=== PATIENT | female | born 1985 | race Two or more races ===

== ENCOUNTER 2020-03-02 05:39 | Emergency (ER) | payer MEDICAID ==
[~2020-03-02] VITALS: Ht 160 cm; Wt 90.7 kg
[2020-03-02 05:40] VITALS: BP 110/78
--- NOTE | 2020-03-02 05:45 | NUR ---
Note swatione in EDM - 03/02/20 at 0607 by DUYEN ED Nurse Note: Patient walked into ED c/o abdominal pain onset for 5 hours nwo, states that "her whole abdomen hurts and it feels like im in labor" presents with nausea and reports of 1 episode of 1 vomit, reports of having episodes of gallstones however has not followed up with her PMD for said pain, patient is alert and oriented x4, ambulatory with a steady gait, VSS. IV line established in right AC 18 gauge. will wait for further orders
--- NOTE | 2020-03-02 05:54 | Emergency Room Report ---
History of Present Illness General Chief Complaint: Abdominal Pain Source: Patient (Narendra Guan MD) Present Illness HPI Disclaimer: Please note that this report is being documented using [employer] technology. This can lead to erroneous entry secondary to incorrect interpretation by the dictating instrument. HPI: 34-year-old female history of gallstones presents for evaluation of abdominal pain. Symptoms began approximately midnight. Patient reports significant diffuse abdominal pain mostly centered on the epigastrium though radiating both up and down. Reports a history of gallstones and was scheduled for cholecystectomy in November in [place] where she was living however this was canceled. States he has been having intermittent flareups but not as bad as today. She now lives in [place] taking care of her father. Has not established care with a primary care doctor or surgeon. Reports several episodes of emesis throughout the night. Denies diarrhea, dysuria, hematuria, fever, chills, shortness of breath. 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 EOMI. Cardiovascular: RRR. S1 and S2 normal. No murmur appreciated Resp: Normal work of breathing. No cough, wheezing or crackles appreciated Abdomen: Abdomen is soft, nondistended. Obese abdomen. Diffusely tender though particular tender in the epigastrium, left upper quadrant right upper quadrant with positive Stanley's point tenderness. Negative for rebound. Skin: Intact. No abrasions, laceration or rash over the exposed skin MSK: Normal tone and bulk. Moving all extremities. No obvious deformity. Neuro: Awake and alert. Mentating appropriately. (Narendra Guan MD) Medical Decision Making Diagnostic Impression: Primary Impression: Symptomatic cholelithiasis ER Course 34-year-old female history of gallstones presents for evaluation of abdominal pain. Differential includes but not limited to cholecystitis, biliary colic, pancreatitis, choledocholithiasis, cholangitis, GERD, perforated ulcer, mesenteric ischemia, pyelonephritis, nephrolithiasis to name a few. Patient placed on gurney, IV line established. She will receive IV fluids, antiemetics , analgesics. Will send broad labs and obtain ultrasound to evaluate for gallbladder disease. Patient will be signed out to Dr Duffy pending labs, imaging and ultimate disposition. (Narendra Guan MD) ER Course This patient was turned over to me by Dr. Guan. Please see his history and physical for those details. The patient was pending ultrasound of the right upper quadrant and laboratory work-up. Ultrasound of the right upper quadrant showed gallstones without evidence of cholecystitis, specifically, no gallbladder wall thickening or francis-cholecystic fluid. I reexamined the patient 's abdomen and her exam was benign. The patient had significant relief of her symptoms with IV pain medication and IV fluids. I did discuss the case with the on-call general surgeon Dr. Herrera. He stated that he would be happy to consult on this patient after she were admitted for pain control and IV fluids and he recommended a HIDA scan to further delineate whether she needed emergency surgery. This plan would require the patient to be admitted over the weekend for IV fluids, bowel rest and pain control and undergo this evaluation on Wednesday. After discussion with the patient, she stated that she would rather try to go home and then returned this weekend if her pain were to worsen and become severe again. She noted that unless she was guaranteed a cholecystectomy , she did not want to be in the hospital. Unfortunately, I do not have control over whether this patient undergoes a cholecystectomy so I cannot guarantee this to the patient. She declined admission stating that she will return for worsening symptoms. I offered the patient a narcotic prescription, but she declined stated that she did not want to get addicted to pain medications. She was given very close return precautions. Laboratory Tests Test 03/02/20 05:45 White Blood Count 13.6 K/UL (4.8-10.8) H Red Blood Count 4.73 M/UL (4.20-5.40) Hemoglobin 14.5 G/DL (12.0-16.0) Hematocrit 40.5 % (37.0-47.0) Mean Corpuscular Volume 86 FL (80-99) Mean Corpuscular Hemoglobin 30.7 PG (27.0-31.0) Mean Corpuscular Hemoglobin Concent 35.9 G/DL (32.0-36.0) Red Cell Distribution Width 11.8 % (11.6-14.8) Platelet Count 317 K/UL (150-450) Mean Platelet Volume 6.5 FL (6.5-10.1) Neutrophils (%) (Auto) 62.3 % (45.0-75.0) Lymphocytes (%) (Auto) 28.8 % (20.0-45.0) Monocytes (%) (Auto) 5.8 % (1.0-10.0) Eosinophils (%) (Auto) 2.1 % (0.0-3.0) Basophils (%) (Auto) 1.0 % (0.0-2.0) Urine Color Brown Urine Appearance Slightly cloudy Urine pH 5 (4.5-8.0) Urine Specific [place]lap 1.025 (1.005-1.035) Urine Protein 2+ (NEGATIVE) H Urine Glucose (UA) Negative (NEGATIVE) Urine Ketones 1+ (NEGATIVE) H Urine Blood 3+ (NEGATIVE) H Urine Nitrite Positive (NEGATIVE) H Urine Bilirubin 1+ (NEGATIVE) H Urine Ictotest Negative (NEGATIVE) Urine Urobilinogen 4 MG/DL (0.0-1.0) H Urine Leukocyte Esterase 2+ (NEGATIVE) H Urine RBC 5-10 /HPF (0 - 2) H Urine WBC 5-10 /HPF (0 - 2) H Urine Squamous Epithelial Cells Many /LPF (NONE/OCC) H Urine Bacteria Moderate /HPF (NONE) H Urine Mucus Moderate /LPF (NONE/OCC) H Urine HCG, Qualitative Negative (NEGATIVE) Sodium Level 138 MMOL/L (136-145) Potassium Level 3.8 MMOL/L (3.5-5.1) Chloride Level 104 MMOL/L (98-107) Carbon Dioxide Level 25 MMOL/L (21-32) Anion Gap 9 mmol/L (5-15) Blood Urea Nitrogen 11 mg/dL (7-18) Creatinine 0.9 MG/DL (0.55-1.30) Estimated Glomerular Filtration Rate > 60 mL/min (>60) Glucose Level 113 MG/DL (74-106) H Calcium Level 8.5 MG/DL (8.5-10.1) Total Bilirubin 0.2 MG/DL (0.2-1.0) Aspartate Amino Transferase (AST) 14 U/L (15-37) L Alanine Aminotransferase (ALT) 30 U/L (12-78) Alkaline Phosphatase 50 U/L (46-116) Troponin I 0.000 ng/mL (0.000-0.056) Total Protein 7.0 G/DL (6.4-8.2) Albumin 3.6 G/DL (3.4-5.0) Globulin 3.4 g/dL Albumin/Globulin Ratio 1.1 (1.0-2.7) Lipase 105 U/L (73-393) [facility] EKG Diagnostic Results EKG Time: 05:55 Rate: normal Rhythm: NSR ST Segments: no acute changes Other Impression Sinus rhythm, normal axis, normal intervals, no ST segment changes. (Narendra Guan MD) Rhythm Strip Diag. Results Rhythm Strip Time: 05:55 EP Interpretation: yes Rate: 60s Rhythm: NSR, no PVC's, no ectopy (Narendra Guan MD) CT/MRI/US Diagnostic Results CT/MRI/US Diagnostic Results : Imaging Test Ordered: US Abd Impression IMPRESSION: Cholelithiasis. No additional findings suspicious for acute cholecystitis. No intra-or extrahepatic biliary dilation suspicious for biliary obstruction identified. If this is of concern, abdominal MRI with MRCP could be considered in further evaluation. [facility] Last Vital Signs Date Time Temp Pulse Resp B/P (MAP) Pulse Ox O2 Delivery O2 Flow Rate FiO2 03/02/20 05:40 92 22 Room Air 03/02/20 05:40 98.8 110/78 99 (Narendra Guan MD) Status: improved [facility] Disposition: HOME, SELF-CARE Condition: Improved Narendra Guan MD Mar 02, 2020 05:54 Meagan Duffy DO Mar 02, 2020 08:37
--- NOTE | 2020-03-02 05:54 | NUR ---
ED Nurse Note: EKG done at bedside; NSR 64; reviewed by ahsan
[2020-03-02] MEDS ORDERED: Morphine Sulfate 4mg/ml Inj (IV USE ONLY) IVP ONE (06:00)
[2020-03-02 06:06] LABS: EOSINOPHILS % (AUTO) 2.1 % (0.0-3.0); HEMATOCRIT 40.5 % (37.0-47.0); HEMOGLOBIN 14.5 G/DL (12.0-16.0); LYMPHOCYTES % (AUTO) 28.8 % (20.0-45.0); MEAN CORPUSCULAR VOLUME 86 FL (80-99); MONOCYTES % (AUTO) 5.8 % (1.0-10.0); NEUTROPHILS % (AUTO) 62.3 % (45.0-75.0); PLATELET COUNT 317 K/UL (150-450); RED BLOOD COUNT 4.73 M/UL (4.20-5.40); RED CELL DISTRIBUTION WIDTH 11.8 % (11.6-14.8); WHITE BLOOD COUNT 13.6 K/UL (4.8-10.8)
[2020-03-02 06:07] LABS: APPEARANCE,URINE SLIGHTLY CLOUDY; BILIRUBIN, URINE 1+ (NEGATIVE); COLOR,URINE BROWN; GLUCOSE, URINE (UA) NEGATIVE (NEGATIVE); KETONES,URINE 1+ (NEGATIVE); LEUKOCYTE ESTERASE ,URINE 2+ (NEGATIVE); NITRITE,URINE POSITIVE (NEGATIVE); PH,URINE 5 (4.5-8.0); PROTEIN,URINE 2+ (NEGATIVE); UROBILINOGEN,URINE 4 MG/DL (0.0-1.0)
--- NOTE | 2020-03-02 06:07 | NUR ---
RUTHIE, PATIENT'S [phone]
[2020-03-02 06:22] LABS: ANION GAP 9 mmol/L (5-15); BLOOD UREA NITROGEN 11 mg/dL (7-18); CALCIUM 8.5 MG/DL (8.5-10.1); CARBON DIOXIDE 25 MMOL/L (21-32); CHLORIDE 104 MMOL/L (98-107); CREATININE 0.9 MG/DL (0.55-1.30); POTASSIUM 3.8 MMOL/L (3.5-5.1); SODIUM 138 MMOL/L (136-145)
[2020-03-02 06:27] LABS: ALANINE AMINOTRANSFERASE 30 U/L (12-78); ALBUMIN 3.6 G/DL (3.4-5.0); ALBUMIN/GLOBULIN RATIO 1.1 (1.0-2.7); ALKALINE PHOSPHATASE 50 U/L (46-116); ASPARTATE AMINO TRANSFERASE 14 U/L (15-37); BILIRUBIN,TOTAL 0.2 MG/DL (0.2-1.0)
--- NOTE | 2020-03-02 07:04 | NUR ---
HAND-OFF: Report given to BING Eden.
--- NOTE | 2020-03-02 07:19 | NUR ---
ED Nurse Note: received report from BING Chu for continuity of care. Pt on bed, awake and alert, NAD noted.
--- NOTE | 2020-03-02 08:06 | Diagnostic Imaging Report ---
EXAM: US Abdomen Complete CLINICAL HISTORY: ABD PAIN TECHNIQUE: Real-time ultrasound of the abdomen with image documentation. COMPARISON: No relevant prior studies available. FINDINGS: Liver: The liver is normal measuring 17.7 cm in length. Patent hepatic veins with normal directional flow. Gallbladder: The gallbladder shows multiple gallstones. No gallbladder wall thickening. Sonographic Stanley's sign was negative. Common bile duct: Normal common duct diameter at 3.7 mm. No intra- hepatic biliary dilation is apparent. No stones. Pancreas: Unremarkable as visualized. Kidneys: Left kidney measures 11.1 x 6.3 x 5.0 cm and is unremarkable. Right kidney measures 9.8 x 4.2 x 5.4 cm and is also unremarkable. No stones. No hydronephrosis. Spleen: Normal splenic size measuring 11 cm in length. Aorta: Normal abdominal aorta and IVC. No aneurysm. Inferior vena cava: See above. Other vasculature: Normal directional flow in the main portal vein. IMPRESSION: Cholelithiasis. No additional findings suspicious for acute cholecystitis. No intra-or extrahepatic biliary dilation suspicious for biliary obstruction identified. If this is of concern, abdominal MRI with MRCP could be considered in further evaluation.
[2020-03-02 08:56] VITALS: BP 115/80
--- NOTE | 2020-03-02 08:56 | NUR ---
ER DISCHARGE NOTE: Pt is cleared to be discharged per ERMD, pt is aox4, on room air, with stable vital signs. pt was given dc and prescription instructions, pt was able to verbalize understanding, pt id band and iv site removed without complications. pt is able to ambulate with steady gait. pt took all belongings.
== END 2020-03-02 08:56 | disposition home or self-care (01) ==
LOC: EDBD 05:39 → EMR 05:55
DX: K80.20 Calculus of gallbladder without cholecystitis without obstruction (principal); Z88.8 Allergy status to other drugs, medicaments and biological substances
CPT/HCPCS: 36415; 76700; 80053; 81003; 81025; 83690; 84484; 85025; 87086; 87181; 93005; 96361; 96374; 96375; J2270; J2405; J7030; Z7502; 99284